=== PATIENT | male | born 1985 | race African-American/Black ===

== ENCOUNTER 2022-01-04 06:21 | Emergency (ER) | payer MEDICAID ==
[~2022-01-04] VITALS: Ht 188 cm; Wt 74.8 kg
--- NOTE | 2022-01-04 06:35 | NUR ---
RCD REPORT FROM PAR[facility]; PT SMOKED FENTANYL W/HX OF MULTIPLE FENTANYL OD. PER REPORT A TOTAL OF 12 MG NARCAN AND ZOFRAN 4 MG WAS GIVEN. 18 G LEFT AC.
--- NOTE | 2022-01-04 06:42 | NUR ---
CONTINUOUS PULSE OX SET UP; PT DENIES SHORTNESS OF BREATH/TROUBLE BREATHING. 100% SATURATION ON ROOM AIR.
[2022-01-04] MEDS ORDERED: ONDANSETRON HCL/PF 4 MG/2 ML VIAL IV ONE (07:30)
[2022-01-04] MEDS ORDERED: ONDANSETRON HCL/PF 4 MG/2 ML VIAL ONE (07:39)
--- NOTE | 2022-01-04 07:56 | NUR ---
called gf for discharge transpo
[2022-01-04] MEDS ORDERED: NALO4SPR BNOSTRILS (10:30)
--- NOTE | 2022-01-04 11:15 | NUR ---
swallow eval done; pt able to drink fluids. late breakfast provided to pt, fred well
--- NOTE | 2022-01-04 11:25 | NUR ---
IV removed. Catheter intact and site benign. Pressure and 4x4 applied to site. No bleeding noted.
--- NOTE | 2022-01-04 11:29 | NUR ---
Patient discharged to home in stable condition. Written and verbal after care instructions given. Patient verbalizes understanding of instruction.
[2022-01-04 11:31] VITALS: BP 139/90
== END 2022-01-04 11:32 | disposition home or self-care (01) ==
LOC: ER 06:29
DX: T40.2X1A Poisoning by other opioids, accidental (unintentional), initial encounter (principal); R11.2 Nausea with vomiting, unspecified; Y92.89 Other specified places as the place of occurrence of the external cause
CPT/HCPCS: 99283; 96374; J2405